=== PATIENT | male | born 1990 | race Two or more races ===

== ENCOUNTER 2019-07-06 12:21 | Emergency (ER) | payer SELFPAY ==
[~2019-07-06] VITALS: Ht 162.6 cm; Wt 81.8 kg
[2019-07-06] MEDS ORDERED: normal saline 1000ml 1,000 ML IV ONE (12:45)
[2019-07-06] MEDS ORDERED: piperacillin/tazo 4.5gm/100ml 100 ML IV ONE (12:45)
[2019-07-06] MEDS ORDERED: bacitracin 15gm ointment TP ONE (12:45)
[2019-07-06] MEDS ORDERED: TETanus/Pertussis (Acell)/Diphther VAC/PF (Tdap-Adult) 0.5ml syringe IM ONE (12:45)
[2019-07-06] MEDS ORDERED: ketorolac trometh. 30mg/ml inj. IV ONE (12:55)
[2019-07-06] MEDS ORDERED: ondansetron/PF 4mg/2ml inj IV ONE (13:45)
[2019-07-06] MEDS ORDERED: propofol 10mg/ml 20ml vial IV ONE (13:50)
--- NOTE | 2019-07-06 14:26 | NUR ---
DR CRANE ADMINISTERED PROPOFAL IV PUSH 1426 8CC/80MG WAS ADMINISTERED 1426 ANOTHER 2CC/20MG WAS ADMINISTERED 1428 ANOTHER 5CC/50MG WAS ADMINISTERED 1429 ANOTHER 3CC/30MG WAS ADMINISTERED
[2019-07-06] MEDS ORDERED: AMOX-422 PO (14:39)
[2019-07-06] MEDS ORDERED: amox tr/potassium clavulanate 500mg/125mg TAB PO ONE (15:15)
[2019-07-06 15:28] VITALS: BP 126/90
== END 2019-07-06 15:33 ==
LOC: ER 12:22
DX: S01.412A Laceration without foreign body of left cheek and temporomandibular area, initial encounter (principal); S41.151A Open bite of right upper arm, initial encounter; S43.005A Unspecified dislocation of left shoulder joint, initial encounter; F12.90 Cannabis use, unspecified, uncomplicated; W54.0XXA Bitten by dog, initial encounter; Y93.89 Activity, other specified; Y92.89 Other specified places as the place of occurrence of the external cause; Y99.9 Unspecified external cause status
CPT/HCPCS: 12014; 23650; 73020; 73030; 73080; 96365; 96366; 96375; 99285; J1885; J2405; J2543; J2704; J7030